=== PATIENT | female | born 1995 | race African-American/Black ===

== ENCOUNTER 2017-10-04 15:21 | Emergency (ER) | payer SELFPAY ==
[~2017-10-04] VITALS: Ht 167.6 cm; Wt 70.0 kg
[2017-10-04 15:23] VITALS: BP 112/76
== END 2017-10-05 | disposition left against medical advice (07) ==
LOC: ER 15:38
DX: S09.90XA Unspecified injury of head, initial encounter (principal); Z53.21 Procedure and treatment not carried out due to patient leaving prior to being seen by health care provider; X58.XXXA Exposure to other specified factors, initial encounter; Y93.89 Activity, other specified; Y92.89 Other specified places as the place of occurrence of the external cause; Y99.8 Other external cause status